=== PATIENT | female | born 1960 | race Caucasian/White ===

== ENCOUNTER 2019-01-04 14:07 | Day surgery (SDC) | payer BC, OTHER ==
[~2019-01-04] VITALS: Ht 157.5 cm; Wt 65.8 kg
[~2019-01-04 14:07] MED LIST: LEVO-T75 MCG PO; LEXAPRO20 MG PO; MULTI VITAMIN1 EACH PO
[2019-01-04 14:48] VITALS: BP 96/61
[2019-01-04] MEDS ORDERED: NORCO 5-325 TA1 EAC1 PO (15:37)
[2019-01-04 16:26] VITALS: BP 96/61
--- NOTE | 2019-01-09 12:13 | O ---
[facility] [place] [address] OPERATIVE REPORT Name: ILDA VEGA Angy Room #: DEP [facility].#: [id number] Admission: 01/04/19 Attend Phys: Kishore Marks MD Discharge: 01/04/19 Date of : 62 Report #: [id number] THIS REPORT FOR: //name// CC: PEE Marks DATE OF SERVICE: 01/04/2019 PREOPERATIVE DIAGNOSIS: Right knee loose body. POSTOPERATIVE DIAGNOSES: 1. 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 2. Grade 4 chondromalacia trochlear groove. 3. No loose bodies noted. PROCEDURE: Diagnostic right knee arthroscopy with chondroplasty of the trochlear groove and medial femoral condyle. SURGEON: Kishore Marks MD. ANESTHESIA: LMA. TOURNIQUET TIME: Approximately 15 minutes. COMPLICATIONS: None. SPECIMENS: None. CONDITION UPON LEAVING THE OPERATING ROOM: Stable. INDICATIONS FOR PROCEDURE: The patient is a female who has had a right-sided catching and right knee pain. She had an MRI scan showing to have potential loose bodies x 2 in her knee. After discussion with her, she elected for right knee arthroscopy with loose body removal and debridement as needed. DESCRIPTION OF PROCEDURE: Risks, benefits, alternatives, complications were discussed in detail with the patient including but not limited to risk of anesthesia, risk of damage to nerves, arteries, blood vessels, risk for infection, bleeding, risk for continued knee pain and need for reoperation. Informed consent was obtained from the patient. Right knee was appropriately marked in the preoperative holding area. IV Ancef was given for preoperative antibiotics. She was brought to the operating room and placed in supine position on operating room table. LMA anesthesia was induced without complication. Tourniquet was placed on the right thigh. Right lower extremity was prepped and draped in normal sterile fashion. Timeout was performed properly identifying the patient and procedure as well as the instrumentation. [address] [address] OPERATIVE REPORT Name: BENJA ILDA ROSS Room #: DEP [facility] [place].#: [id number] Admission: 01/04/19 Attend Phys: Kishore Marks MD Discharge: 01/04/19 Date of : 62 Report #: [id number] All in the operating room were in agreement. Right lower extremity was exsanguinated, tourniquet was inflated. Tourniquet time was approximately 15 minutes. Standard anterolateral portal was established with 11 blade through the skin. Arthroscope was introduced into the patellofemoral compartment, diagnostic arthroscopy was undertaken. Patellofemoral compartment was visualized and found to have grade 2 chondromalacia of the patella. Medial gutter was visualized and found to be without pathology. Medial compartment was visualized and medial portal was established under arthroscopic visualization. Probe was introduced into the medial compartment. There was noted to be an intact medial meniscus. There were areas of grade 2-3 chondromalacia of the medial femoral condyle and chondroplasty of this area was performed with the oscillating shaver. Notch was visualized and found to have an intact anterior cruciate ligament. Lateral compartment was visualized and found to have an intact lateral meniscus. Lateral gutter was visualized and found to be without pathology. Scope was then placed back in the patellofemoral compartment and there was noted to be grade 4 chondromalacia of the trochlear groove. There were several unstable cartilaginous flaps. These were debrided back with oscillating shaver. A search for loose bodies was then performed again and found to be negative including looking in the suprapatellar pouch and in the posterior recesses medially and laterally. After this, all fluid was allowed to drain from the knee. The knee was injected with 10 mL of 0.5% Marcaine. Incision was closed with 3-0 nylon. Soft dressing of Adaptic, 4 x 4, Webril, Sage wrap were applied. The patient tolerated this procedure well and went to recovery room under care of anesthesia postoperatively. <ELECTRONICALLY SIGNED> By: Kishore Marks MD 01/09/19 1213 [id number] Kishore Marks MD /nt
== END 2019-01-04 17:00 | disposition home or self-care (01) ==
LOC: OR 14:07 → TBA 14:07 → OR 14:47
DX: M94.261 Chondromalacia, right knee (principal); F41.9 Anxiety disorder, unspecified; Z98.890 Other specified postprocedural states; Z87.891 Personal history of nicotine dependence; Z90.710 Acquired absence of both cervix and uterus; Z98.41 Cataract extraction status, right eye; Z98.42 Cataract extraction status, left eye; Z96.1 Presence of intraocular lens; Z79.899 Other long term (current) drug therapy; Z79.891 Long term (current) use of opiate analgesic
CPT/HCPCS: 50010; 50101; 50405; 51038; 54170; 56526; 57103; 57180; 62110; 62900; 70005

== ENCOUNTER → 2019-11-30 | Outpatient (CLI) | payer BC, OTHER ==
[~2019-11-30] MED LIST changes: +NORCO 5-325 TA1 EAC1 PO
== END ==
LOC: LAB 13:01
PROVIDERS: ATTEND Anesthesiology
DX: Z01.812 Encounter for preprocedural laboratory examination (principal); Z20.828 Contact with and (suspected) exposure to other viral communicable diseases